=== PATIENT | female | born 1980 | race Caucasian/White ===

== ENCOUNTER 2017-05-06 12:32 | Emergency (ER) | payer MEDICAID ==
[2017-05-06 12:43] VITALS: BP 146/79
[2017-05-06] MEDS ORDERED: CARBAMIDE PEROXIDE 6.5% OTIC DROPS LEFTEAR STA (13:09)
[2017-05-06] MEDS ORDERED: CARBAMIDE PEROXIDE 6.5% OTIC DROPS ONE (13:37)
--- NOTE | 2017-05-06 14:19 | ED Physician Documentation ---
PD HPI HEENT - Stated complaint Stated Complaint: LT EAR PX - Chief complaint Chief Complaint: Heent - History obtained from History obtained from: Patient - History of Present Illness Timing - onset: How many weeks ago (2) Timing - duration: Weeks (2) Timing - details: Still present Location: Left ear Associated symptoms: No: Fever, Headache Similar symptoms before: Has not had sx before - Additional information Additional information: The patient is a 36-year-old female who complains of a left earache that has been increasing in severity over the past 2 weeks. She denies associated headache, fever, or sore throat. She denies history of similar symptoms in the past. Review of Systems Constitutional: denies: Fever Eyes: denies: Irritation Ears: reports: Ear pain. 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 - Present Medications Home Medications: Ambulatory Orders Medication Instructions Recorded Confirmed Sulfamethox/Trimeth 800/160 1 each PO BID #14 tablet 05/06/17 [Bactrim Ds 800/160] - Allergies Allergies/Adverse Reactions: Allergies Allergy/AdvReac Type Severity Reaction Status Date / Time No Known Drug Allergies Allergy Verified 10/02/15 17:56 - Social History Does the pt smoke?: No Smoking Status: Never smoker Does the pt drink ETOH?: No Does the pt have substance abuse?: No - Immunizations Immunizations are current?: Yes PD ED PE NORMAL - Vitals Vital signs reviewed: Yes (Systolic hypertension initially.) - General General: Alert and oriented X 3, Other (Obese.) - HEENT HEENT: Atraumatic, EOMI, Pharynx benign, Other (Left tympanic membrane Was initially obscured by cerumen. After irrigation, reexamination reveals a markedly erythematous tympanic membrane with loss of landmarks. Right tympanic membrane is clear.) - Neck Neck: Supple, no meningeal sign, No adenopathy, No JVD - Cardiac Cardiac: RRR, No murmur - Respiratory Respiratory: No respiratory distress, Clear bilaterally - Derm Derm: No rash - Neuro Neuro: Alert and oriented X 3, Normal speech Results - Vitals Vitals: Oxygen O2 Source Room air PD MEDICAL DECISION MAKING - ED course Complexity details: re-evaluated patient, considered differential, d/w patient ED course: The patient's presentation is most consistent with acute left otitis media. Her presentation does not suggest meningitis, mastoiditis, or peritonsillar abscess. Treatment in the emergency department included irrigation of cerumen from the left ear canal. She is being discharged with a prescription for Bactrim DS. I discussed with her the expected course of illness, antibiotic treatment and outpatient follow-up, as well as potentially worrisome signs or symptoms that should prompt reevaluation in the emergency department. Departure - Departure Disposition: 01 Home, Self Care Clinical Impression: Acute left otitis media Condition: Stable Instructions: ED Otitis Media Acute Adult Follow-Up: [facility] [Provider Group] Prescriptions: Sulfamethox/Trimeth 800/160 [Bactrim Ds 800/160] 1 each PO BID #14 tablet Comments: Take Bactrim twice daily as prescribed. You can use ibuprofen, up to 800 mg 3 times daily if needed for pain or fever. Follow up with your primary physician within 2 weeks. Call to schedule an appointment. Return to the emergency department if you develop increasing headache, increasing pain in your ear, or otherwise worsening symptoms. Discharge Date/Time: 05/06/17 14:27
== END 2017-05-06 14:27 | disposition home or self-care (01) ==
LOC: ED 12:32
DX: H66.92 Otitis media, unspecified, left ear (principal); H61.22 Impacted cerumen, left ear; G47.30 Sleep apnea, unspecified
CPT/HCPCS: 69210; 99283

== ENCOUNTER 2017-08-04 20:16 | Emergency (ER) | payer MEDICAID ==
[2017-08-04] MEDS ORDERED: HYDROcod/ACETAM 5/325 MG TABLET PO STA (20:32)
--- NOTE | 2017-08-04 20:34 | ED Physician Documentation ---
PD HPI URI - Stated complaint Stated Complaint: SORE THROAT - Chief complaint Chief Complaint: Heent - History obtained from History obtained from: Patient - History of Present Illness Timing - onset: Other (37-year-old woman status post remote tonsillectomy presents with 2 days of sore throat, hoarse voice, chills, body aches, fatigue and swollen glands with mild cough. No possibility of .) Review of Systems Constitutional: reports: Fever, Chills, Myalgias, Fatigue Nose: denies: Rhinorrhea / runny nose, Congestion Throat: reports: Sore throat Respiratory: reports: Cough. 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 Home Medications: Ambulatory Orders Medication Instructions Recorded Confirmed HYDROcod/ACETAM 5/325 [[place] 5/325] 1 - 2 ea PO Q6H PRN #10 tablet 08/04/17 - Allergies Allergies/Adverse Reactions: Allergies Allergy/AdvReac Type Severity Reaction Status Date / Time No Known Drug Allergies Allergy Verified 08/04/17 20:44 - Social History Does the pt smoke?: No Smoking Status: Never smoker Does the pt drink ETOH?: No Does the pt have substance abuse?: No - Immunizations Immunizations are current?: Yes PD ED PE NORMAL - Vitals Vital signs reviewed: Yes - General General: Alert and oriented X 3, No acute distress - HEENT HEENT: Other (Status post tonsillectomy, visualized portions of the oropharynx are normal.) - Neck Neck: Supple, no meningeal sign, No bony TTP - Cardiac Cardiac: RRR, No murmur - Respiratory Respiratory: No respiratory distress, Clear bilaterally - Abdomen Abdomen: Non tender - Derm Derm: No rash - Neuro Neuro: Alert and oriented X 3, Normal speech Results - Vitals Vitals: Vital Signs - 24 hr 08/04/17 20:18 Temperature 36 C L Heart Rate 112 H Respiratory 18 Rate Blood Pressure 124/74 O2 Saturation 95 Oxygen O2 Source Room air - Labs Labs: Laboratory Tests 08/04/17 08/04/17 20:25 21:04 Influenza A (Rapid) Negative Influenza B (Rapid) Negative Influenza Types A,B Ag - Group A Strep Rapid Negative Departure - Departure Disposition: 01 Home, Self Care Clinical Impression: Viral syndrome Condition: Good Record reviewed to determine appropriate education?: Yes Instructions: ED Viral Syndrome Prescriptions: HYDROcod/ACETAM 5/325 [[place] 5/325] 1 - 2 ea PO Q6H PRN #10 tablet PRN Reason: Pain Comments: Drink plenty of fluids, ibuprofen as needed in addition to the Vicodin. Do not drink or drive while taking narcotic pain medication. Note that many narcotic pain relievers also contain Tylenol/acetaminophen. Please ensure that your total dose of acetaminophen from all sources does not exceed 3 g (3000 mg) per day. You may get constipated while on this medication. Take a stool softener such as Colace twice a day while you are on it. Also add an [id number] laxative such as senna or MiraLAX on any day that you do not have a bowel movement. If you received a narcotic pain medication or sedative while in the emergency department, do not drive for the next 24 hours. Forms: Activity restrictions
[2017-08-04 20:38] LABS: RAPID STREP SCREEN REAGENT QC YELLOW (YELLOW)
[2017-08-04 23:27] VITALS: BP 130/74
== END 2017-08-04 21:50 | disposition home or self-care (01) ==
LOC: ED 20:16
DX: B34.9 Viral infection, unspecified (principal); G47.30 Sleep apnea, unspecified
CPT/HCPCS: 87070; 87275; 87276; 87430; 99283; A9270

== ENCOUNTER 2017-08-07 18:11 | Emergency (ER) | payer MEDICAID ==
[2017-08-07 18:20] VITALS: BP 154/83
--- NOTE | 2017-08-07 18:22 | ED Physician Documentation ---
PD HPI URI - Stated complaint Stated Complaint: FEVER/EAR PX/SORE NECK - Chief complaint Chief Complaint: General - History obtained from History obtained from: Patient - History of Present Illness Timing - onset: How many days ago (5-6) Timing duration: Days (5-6) Timing details: Gradual onset, Still present Associated symptoms: Fever, Nasal congestion, Sore throat, Swollen nodes Contributing factors: No: Sick contact, Travel Worsened by: No: Activity Similar symptoms before: Diagnosis (strep throat) Recently seen: Emergency Dept (3 days ago for similar and not improved, actually worse. had negative strep test. I looked up her culture result and it is positive for strep group A (but resulted today so had not gone through culture review as yet).) Review of Systems Constitutional: reports: Fever, Chills, Myalgias Nose: reports: Rhinorrhea / runny nose, Congestion Throat: reports: Sore throat Cardiac: denies: Chest pain / pressure Respiratory: denies: Cough GI: denies: Vomiting, Diarrhea Skin: denies: Rash, Lesions Neurologic: denies: Altered mental status, Headache PD PAST MEDICAL HISTORY - Past Medical History Past Medical History: Yes Cardiovascular: None Respiratory: Sleep apnea, CPAP use Neuro: None Endocrine/Autoimmune: None Musculoskeletal: None - Past Surgical History Past Surgical History: Yes 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 - Present Medications Home Medications: Ambulatory Orders Medication Instructions Recorded Confirmed Benzonatate [Tessalon] 100 mg PO TID PRN #15 capsule 08/07/17 Cephalexin [Keflex] 500 mg PO QID #24 capsule 08/07/17 Dexamethasone [Decadron] 4 mg PO DAILY #5 tablet 08/07/17 Ondansetron Odt [Zofran] 4 mg TL Q6H PRN #15 tablet 08/07/17 - Allergies Allergies/Adverse Reactions: Allergies Allergy/AdvReac Type Severity Reaction Status Date / Time No Known Drug Allergies Allergy Verified 08/07/17 18:20 - Social History Does the pt smoke?: No Smoking Status: Never smoker Does the pt drink ETOH?: No Does the pt have substance abuse?: No - Immunizations Immunizations are current?: Yes - POLST Patient has POLST: No PD ED PE NORMAL - Vitals Vital signs reviewed: Yes - General General: Alert and oriented X 3, No acute distress, Well developed/nourished - HEENT HEENT: Moist mucous membranes. No: Pharynx benign (red without focal swelling nor exudate. Anterior nodes tender. No posterior nodes felt. ) - Neck Neck: Supple, no meningeal sign - Cardiac Cardiac: RRR, No murmur - Respiratory Respiratory: Clear bilaterally - Abdomen Abdomen: Soft, Non tender, No organomegaly - Derm Derm: Normal color, Warm and dry, No rash - Neuro Neuro: Alert and oriented X 3, No motor deficit, Normal speech Results - Vitals Vitals: Oxygen O2 Source Room air PD MEDICAL DECISION MAKING - ED course Complexity details: reviewed results, considered differential (not that impressive clinically but culture from recent visit just reports today as positive strep. ), d/w patient Departure - Departure Disposition: 01 Home, Self Care Clinical Impression: Strep pharyngitis Upper respiratory infection Qualifiers: URI type: unspecified URI Qualified Code(s): J06.9 - Acute upper respiratory infection, unspecified Condition: Stable Record reviewed to determine appropriate education?: Yes Instructions: ED Strep Pharyngitis Conf Follow-Up: Ginger Daniels ARNP [Primary Care Provider] - Prescriptions: Benzonatate [Tessalon] 100 mg PO TID PRN #15 capsule PRN Reason: Cough Cephalexin [Keflex] 500 mg PO QID #24 capsule Dexamethasone [Decadron] 4 mg PO DAILY #5 tablet Ondansetron Odt [Zofran] 4 mg TL Q6H PRN #15 tablet PRN Reason: Nausea / Vomiting Comments: Your throat culture did grow Strep Group A, so will treat with antibiotic, as well as medication for inflammation, nausea, cough. Drink lots of fluids and use Tylenol for fevers and pains. Recheck if not improving over the next 2-3 days. Discharge Date/Time: 08/07/17 19:15
[2017-08-07] MEDS ORDERED: ONDANSETRON ODT 4 MG TABLET TL STA (18:54)
[2017-08-07] MEDS ORDERED: BENZONATATE 100 MG CAPSULE PO STA (18:54)
[2017-08-07] MEDS ORDERED: ONDANSETRON ODT 4 MG Prepack 2 TL PRN (18:54)
[2017-08-07] MEDS ORDERED: DEXAMETHASONE 10 MG/ML VIAL PO STA (18:54)
[2017-08-07] MEDS ORDERED: diphenhydrAMINE 25 MG CAPSULE PO STA (18:54)
[2017-08-07] MEDS ORDERED: cephALEXin 250 MG CAPSULE PO STA (18:55)
== END 2017-08-07 19:15 | disposition home or self-care (01) ==
LOC: ED 18:11
DX: J02.0 Streptococcal pharyngitis (principal); J06.9 Acute upper respiratory infection, unspecified; G47.30 Sleep apnea, unspecified
CPT/HCPCS: 99283; A9270; Q0162

== ENCOUNTER 2017-08-12 13:08 | Emergency (ER) | payer MEDICAID ==
[2017-08-12 13:14] VITALS: BP 120/76
--- NOTE | 2017-08-12 13:51 | XRAY Report ---
EXAM: CHEST RADIOGRAPHY EXAM DATE: 08/12/2017 01:42 PM. CLINICAL HISTORY: Cough. COMPARISON: None. TECHNIQUE: 2 views. FINDINGS: Lungs/Pleura: Mild interstitial prominence with peribronchial cuffing. No localized infiltrate, conso lidation, effusion, or pneumothorax. Mediastinum: Heart and mediastinal contours are unremarkable. Other: None. IMPRESSION: Mild interstitial prominence, compatible with bronchitis. [facility] Referring Provider Line: [phone] SITE ID: [id number]
[2017-08-12] MEDS ORDERED: ALBUTEROL NEB 2.5 MG/3 ML INH STA (14:21)
--- NOTE | 2017-08-12 14:44 | ED Physician Documentation ---
PD HPI URI - Stated complaint Stated Complaint: sore throat - Chief complaint Chief Complaint: Resp - History obtained from History obtained from: Patient - History of Present Illness Timing - onset: How many days ago (2-3) Timing duration: Days Timing details: Gradual onset, Still present Associated symptoms: Fever, Chills, Sore throat, Dry cough. No: Nasal congestion, Rhinorrhea, NVD Contributing factors: No: Sick contact, Travel Similar symptoms before: Diagnosis (strep throat) Recently seen: Emergency Dept (8 days ago with sore throat and cough, with URI Dx. Worse sore throat and seen again 08/07, with culture showing Group A Strep, so Rx with Decadron and Keflex. 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 - Present Medications Home Medications: Ambulatory Orders Medication Instructions Recorded Confirmed Benzonatate [Tessalon] 100 mg PO TID PRN #15 capsule 08/07/17 Cephalexin [Keflex] 500 mg PO QID #24 capsule 08/07/17 Dexamethasone [Decadron] 4 mg PO DAILY #5 tablet 08/07/17 Ondansetron Odt [Zofran] 4 mg TL Q6H PRN #15 tablet 08/07/17 Albuterol Sulf [Ventolin Hfa 1 - 2 puffs INH Q4HR PRN #1 inhaler 08/12/17 Inhaler] Azithromycin [Zithromax] 250 mg PO DAILY #6 tablet 08/12/17 Dexamethasone [Decadron] 4 mg PO DAILY #5 tablet 08/12/17 HYDROcod/ACETAM 5/325 [[place] 5/325] 1 tab PO Q6H PRN #15 tablet 08/12/17 - Allergies Allergies/Adverse Reactions: Allergies Allergy/AdvReac Type Severity Reaction Status Date / Time No Known Drug Allergies Allergy Verified 08/07/17 18:20 - Social History Does the pt smoke?: No Smoking Status: Never smoker Does the pt drink ETOH?: No Does the pt have substance abuse?: No - Immunizations Immunizations are current?: Yes - POLST Patient has POLST: No PD ED PE NORMAL - Vitals Vital signs reviewed: Yes - General General: Alert and oriented X 3, No acute distress, Well developed/nourished - HEENT HEENT: Moist mucous membranes. No: Pharynx benign (redness with white exudates. No peritonsillar swelling. ) - Neck Neck: Supple, no meningeal sign, Other (anterior adenopathy) - Cardiac Cardiac: RRR, No murmur - Respiratory Respiratory: Clear bilaterally - Abdomen Abdomen: Soft, Non tender - Derm Derm: Normal color, Warm and dry, No rash Results - Vitals Vitals: Oxygen O2 Source Room air PD MEDICAL DECISION MAKING - ED course Complexity details: reviewed old records (had culture positive strep throat without improvement on meds; will try different abx and recourse steroids. ), considered differential, d/w patient Departure - Departure Disposition: 01 Home, Self Care Clinical Impression: Strep pharyngitis Upper respiratory infection Qualifiers: URI type: unspecified URI Qualified Code(s): J06.9 - Acute upper respiratory infection, unspecified Condition: Stable Record reviewed to determine appropriate education?: Yes Instructions: ED Strep Pharyngitis Conf Follow-Up: Ginger Daniels ARNP [Primary Care Provider] - Prescriptions: Albuterol Sulf [Ventolin Hfa Inhaler] 1 - 2 puffs INH Q4HR PRN #1 inhaler PRN Reason: Shortness Of Air/Wheezing Azithromycin [Zithromax] 250 mg PO DAILY #6 tablet Dexamethasone [Decadron] 4 mg PO DAILY #5 tablet HYDROcod/ACETAM 5/325 [[place] 5/325] 1 tab PO Q6H PRN #15 tablet PRN Reason: Pain Comments: Drink lots of fluids. Tylenol or ibuprofen if needed for fevers and pains. Continue the steroid Decadron for several more days. Change to Zithromax antibiotic since you are not really improving on the current 1. Use albuterol inhaler 2 puffs 4 times a day for wheezing cough. Add hydrocodone if needed for cough or pains. Recheck if still not improving over the next several days. Discharge Date/Time: 08/12/17 14:54
[2017-08-12] MEDS ORDERED: AZITHROMYCIN 250 MG TABLET PO STA (14:46)
== END 2017-08-12 14:54 | disposition home or self-care (01) ==
LOC: ED 13:08
DX: J02.0 Streptococcal pharyngitis (principal); J06.9 Acute upper respiratory infection, unspecified
CPT/HCPCS: 71020; 94640; 99283; A9270; J7613

== ENCOUNTER 2017-08-16 13:54 | Emergency (ER) | payer MEDICAID ==
[2017-08-16 13:59] VITALS: BP 149/90
--- NOTE | 2017-08-16 14:16 | ED Physician Documentation ---
PD HPI URI - Stated complaint Stated Complaint: DIZZY/FEVER/COUGH/SOA - Chief complaint Chief Complaint: Resp - History obtained from History obtained from: Patient - History of Present Illness Timing - onset: Other (She has been sick for about 3 weeks, started with a sore throat, rapid strep was negative but culture positive. She was started on a short course of Keflex, the illness moved into her ears and lungs and now her main symptom is vertigo with ear pain and sinus pressure but no fevers.) Review of Systems Constitutional: reports: Fatigue. denies: Fever, Chills Ears: reports: Ear pain Nose: reports: Rhinorrhea / runny nose, Congestion, Sinus pressure / pain Throat: denies: Sore throat Respiratory: reports: Cough. 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 - Present Medications Home Medications: Ambulatory Orders Medication Instructions Recorded Confirmed Albuterol Sulf [Ventolin Hfa 1 - 2 puffs INH Q4HR PRN #1 inhaler 08/12/17 Inhaler] Amox/Clav 875/125 [Augmentin] 1 each PO Q12H #20 tablet 08/16/17 Guaifenesin/Pseudoephedrne HCl 1 each PO BID PRN #20 tab.er.12h 08/16/17 [Mucinex D ER 600-60 mg Tablet] Meclizine HCl 1 tab PO Q6H PRN #15 tab.chew 08/16/17 - Allergies Allergies/Adverse Reactions: Allergies Allergy/AdvReac Type Severity Reaction Status Date / Time No Known Drug Allergies Allergy Verified 08/16/17 13:58 - Social History Does the pt smoke?: No Smoking Status: Never smoker Does the pt drink ETOH?: No Does the pt have substance abuse?: No - Immunizations Immunizations are current?: Yes - POLST Patient has POLST: No PD ED PE NORMAL - Vitals Vital signs reviewed: Yes - General General: Alert and oriented X 3, No acute distress - HEENT HEENT: PERRL, EOMI, Ears normal, Other (Bilateral maxillary sinus tenderness, left TM is retracted, no otitis media, pharynx normal.) - Neck Neck: Supple, no meningeal sign, No bony TTP - Cardiac Cardiac: RRR, No murmur - Respiratory Respiratory: No respiratory distress, Clear bilaterally - Abdomen Abdomen: Non tender - Neuro Neuro: Alert and oriented X 3 - Psych Psych: Normal mood, Normal affect Results - Vitals Vitals: Vital Signs - 24 hr 08/16/17 13:56 Temperature 36.3 C L Heart Rate 95 Respiratory 21 Rate Blood Pressure 149/90 H O2 Saturation 95 Oxygen O2 Source Room air Departure - Departure Disposition: Home, Self Care Clinical Impression: Sinusitis Condition: Good Record reviewed to determine appropriate education?: Yes Instructions: ED Sinusitis Abx Tx Prescriptions: Amox/Clav 875/125 [Augmentin] 1 each PO Q12H #20 tablet Guaifenesin/Pseudoephedrne HCl [Mucinex D ER 600-60 mg Tablet] 1 each PO BID PRN #20 tab.er.12h PRN Reason: congestion Meclizine HCl 1 tab PO Q6H PRN #15 tab.chew PRN Reason: Vertigo Comments: Call your doctor to arrange a follow-up appointment, make the next available appointment. In the interim, return anytime if worse or if new symptoms develop.
== END 2017-08-16 14:23 | disposition home or self-care (01) ==
LOC: ED 13:54
DX: J32.9 Chronic sinusitis, unspecified (principal); R42 Dizziness and giddiness
CPT/HCPCS: 99283

== ENCOUNTER 2020-07-26 14:13 | Outpatient (CLI) | payer MEDICAID, OTHER ==
--- NOTE | 2020-07-26 14:39 | XRAY Report ---
PROCEDURE: Pelvis 1 View INDICATIONS: IUD CHECK TECHNIQUE: 1 view(s) of the pelvis acquired. COMPARISON: None. FINDINGS: Bones: No fractures or dislocations. Bilateral hip joint osteoarthritic changes are seen. No suspic ious bony lesions. Soft tissues: Intrauterine device is seen in left pelvis just lateral to the midline. Visualized milan l gas pattern is normal. No suspicious soft tissue calcifications. IMPRESSION: 1. Intrauterine device as above. 2. No pelvic fracture or dislocation. Bilateral hip joint osteoarthritis. Reviewed by: Tolu Martinez MD on 07/26/2020 1:38 PM [facility] Approved by: Tolu Martinez MD on 07/26/2020 1:38 PM [facility] Station ID: [id number]
== END 2020-07-26 23:59 | disposition home or self-care (01) ==
LOC: DI.WCP 14:13
PROVIDERS: ATTEND Nurse Practitioner Family
DX: Z30.431 Encounter for routine checking of intrauterine contraceptive device (principal); M16.0 Bilateral primary osteoarthritis of hip

== ENCOUNTER 2020-08-12 20:09 | Outpatient (CLI) | payer OTHER ==
--- NOTE | 2020-08-13 16:15 | Ultrasound Report ---
PROCEDURE: Pelvic w/Transvaginal INDICATIONS: IUD CANTRACEPTION TECHNIQUE: Real-time scanning was performed of the pelvic organs, with image documentation. Additional endovagi nal scanning was necessary due to incomplete visualization of the adnexal and endometrial structures by transabdominal scanning. COMPARISON: None. FINDINGS: Technically difficult exam due to patient's body habitus and the patient's inability to em pty the urinary bladder for transvaginal exam. Transabdominal scanning: Limited scanning through the kidneys shows no hydronephrosis. No pathologi c free abdominal or pelvic fluid. Endovaginal scanning: Uterus: Uterus is mildly enlarged measuring 10.8 x 4.8 x 5.7 cm. Uterus is anteverted. The endometr ium measures 9 mm in combined thickness. There is an IUD which is suboptimally visualized. Ovaries: Right ovary measures 5.8 x 5.4 x 5.5 cm. A 5.0 x 5.2 x 4.4 cm simple cyst seen. Left ovary is not well seen. A 1.7 x 1.5 x 1.9 cm cyst is seen in the left adnexa. IMPRESSION: 1. Uterus is slightly enlarged. There is an IUD in uterus, which is suboptimally visualized but appea rs within the endometrial cavity. 2. A 5.0 x 5.2 x 4.4 cm simple appearing right ovary cyst. A short-term follow-up ultrasound is sugge sted in 6 weeks. 4. The left ovary is not well seen.? A ovarian or paraovarian cyst in left adnexa. Reviewed by: Malick Qiu MD on 08/13/2020 4:14 PM PST Approved by: Malick Qiu MD on 08/13/2020 4:14 PM PST Station ID: [id number]
== END 2020-08-12 20:10 | disposition home or self-care (01) ==
LOC: DI 20:09
PROVIDERS: ATTEND Obstetrics & Gynecology
DX: Z97.5 Presence of (intrauterine) contraceptive device (principal); N83.201 Unspecified ovarian cyst, right side

== ENCOUNTER 2020-11-28 08:00 | Outpatient (CLI) | payer OTHER | END 2020-11-28 23:59 | disposition home or self-care (01) | LOC: LAB.WCP 08:00 | PROVIDERS: ATTEND Family Medicine | DX: Z32.00 Encounter for pregnancy test, result unknown (principal) | CPT/HCPCS: 36415; 84702 ==

== ENCOUNTER 2020-12-04 08:00 | Outpatient (CLI) | payer OTHER, MEDICAID | END 2020-12-04 23:59 | disposition home or self-care (01) | LOC: LAB.WCP 08:00 | PROVIDERS: ATTEND Nurse Practitioner Obstetrics & Gynecology | DX: O03.9 Complete or unspecified spontaneous abortion without complication (principal) | CPT/HCPCS: 36415; 84702 ==

== ENCOUNTER 2020-12-11 08:02 | Outpatient (CLI) | payer OTHER, MEDICAID | END 2020-12-11 08:03 | disposition home or self-care (01) | LOC: LAB 08:02 | PROVIDERS: ATTEND Obstetrics & Gynecology | DX: Z00.00 Encounter for general adult medical examination without abnormal findings (principal); Z13.1 Encounter for screening for diabetes mellitus; O03.9 Complete or unspecified spontaneous abortion without complication; Z13.220 Encounter for screening for lipoid disorders; Z13.21 Encounter for screening for nutritional disorder ==

== ENCOUNTER 2020-12-11 08:06 | Outpatient (CLI) | payer OTHER, MEDICAID ==
[2020-12-11 08:34] LABS: HCT - HEMATOCRIT 43.3 % (37.0-47.0); HGB - HEMOGLOBIN 15.4 g/dL (12.0-16.0); MEAN CORPUSCULAR HEMOGLOBIN 31.6 pg (27.0-31.0); MEAN CORPUSCULAR HGB CONC 35.6 g/dL (32.0-36.0); MEAN CORPUSCULAR VOLUME 88.7 fL (81.0-99.0); RED BLOOD COUNT 4.88 10^6/uL (4.20-5.40); RED CELL DISTRIBUTION WIDTH 12.8 % (12.0-15.0)
[2020-12-11 08:43] LABS: GTT GLUCOSE,FASTING 117 mg/dL (70-100)
[2020-12-11 08:53] LABS: ALBUMIN 4.5 g/dL (3.2-5.5); ALBUMIN/GLOBULIN RATIO 1.3 (1.0-2.2); ALKALINE PHOSPHATASE 50 IU/L (42-121); ALT ALANINE AMINOTRANSFERASE 27 IU/L (10-60); AST ASPARTATE AMINOTRANSFERASE 20 IU/L (10-42); BILIRUBIN,TOTAL 1.1 mg/dL (0.2-1.0); BUN - BLOOD UREA NITROGEN 12 mg/dL (6-20); CALCIUM 9.3 mg/dL (8.5-10.3); CARBON DIOXIDE - CO2 26 mmol/L (21-32); CHLORIDE 103 mmol/L (101-111); CHOL/HDL RATIO 4.5 (<4.4); CHOLESTEROL 170 mg/dL; CREATININE 0.6 mg/dL (0.4-1.0); GFR - MDRD 110 (>89); GLUCOSE 111 mg/dL (70-100); HDL CHOLESTEROL 38 mg/dL; LDL CHOLESTEROL,CALCULATED 106 mg/dL; LDL/HDL RATIO 2.8 (<4.4); POTASSIUM 3.7 mmol/L (3.5-5.0); SODIUM 139 mmol/L (135-145); TOTAL PROTEIN 7.9 g/dL (6.7-8.2); TRIGLYCERIDES 131 mg/dL; VLDL CHOLESTEROL 26 mg/dL
[2020-12-11 09:01] LABS: T4 (THYROXINE) 8.42 ug/dL (6.09-12.23)
[2020-12-11 09:04] LABS: THYROID STIMULATING HORMONE 1.19 uIU/mL (0.34-5.60)
[2020-12-11 09:10] LABS: PROLACTIN 7.14 ng/mL
[2020-12-11 12:55] LABS: ESTIMATED AVERAGE GLUCOSE 91 mg/dL (70-100); HEMOGLOBIN A1c% 4.8 % (4.27-6.07)
== END 2020-12-11 08:07 | disposition home or self-care (01) ==
LOC: LAB 08:06
PROVIDERS: ATTEND Obstetrics & Gynecology
DX: Z00.00 Encounter for general adult medical examination without abnormal findings (principal); Z13.1 Encounter for screening for diabetes mellitus; O03.9 Complete or unspecified spontaneous abortion without complication; Z13.220 Encounter for screening for lipoid disorders; Z13.21 Encounter for screening for nutritional disorder
CPT/HCPCS: 36415; 80053; 80061; 82306; 82951; 83036; 83721; 84146; 84436; 84443; 85027

== ENCOUNTER 2021-01-16 08:00 | Outpatient (CLI) | payer MEDICAID, OTHER | END 2021-01-16 23:59 | disposition home or self-care (01) | LOC: LAB.N 08:00 | PROVIDERS: ATTEND Family Medicine | DX: N39.0 Urinary tract infection, site not specified (principal) | CPT/HCPCS: 87086 ==

== ENCOUNTER 2021-06-17 11:41 | Outpatient (CLI) | payer MEDICAID | END 2021-06-17 11:42 | disposition home or self-care (01) | LOC: LAB.N 11:41 | PROVIDERS: ATTEND Obstetrics & Gynecology | DX: Z32.01 Encounter for pregnancy test, result positive (principal) | CPT/HCPCS: 84144 ==

== ENCOUNTER 2021-07-18 09:58 | Outpatient (CLI) | payer MEDICAID | END 2021-07-18 09:59 | disposition home or self-care (01) | LOC: LAB.N 09:58 | PROVIDERS: ATTEND Obstetrics & Gynecology | DX: O20.9 Hemorrhage in early pregnancy, unspecified (principal) | CPT/HCPCS: 36415; 84702 ==

== ENCOUNTER 2021-08-04 18:44 | Outpatient (CLI) | payer MEDICAID ==
--- NOTE | 2021-08-05 13:31 | Ultrasound Report ---
PROCEDURE: OB First Trimester w/TV INDICATIONS: POSITIVE TEST OUTSIDE/PRIOR DATING DATA: Last menstrual period (LMP): 05/22/2021. LMP-based estimated date of delivery (ALLISON): 02/26/2022. First dating scan (date and location): 08/04/2021. Estimated date of delivery (ALLISON) from first dating scan: 02/21/2022. The below data below was generated using the ultrasound generated ALLISON of 02/21/2022 TECHNIQUE: Real-time scanning was performed of the fetus and maternal pelvic organs, with image documentation. Endovaginal scanning was also performed to better visualize the fetus and maternal ovaries. COMPARISON: None FINDINGS: The gestational sac measures 6.1 cm. [place]-rump length is 4.5 cm. Estimated gestational age 11 weeks 2 days based on crown-rump length. Cervix is closed. heart rate 173 bpm. Measurement variability in dating: +/- 4 weeks by LMP, +/- 7 days by mean sac diameter (use before 6 weeks gestation if crown-rump length not able to be measured), +/- 5 days by crown-rump length (6-12 weeks gestation). Maternal organs: Ovaries not well seen.. IMPRESSION: Single live intrauterine gestation with estimated ultrasound age of 11 weeks 2 days. Reviewed by: Sacha Landa MD on 08/05/2021 1:30 PM PST Approved by: Sacha Landa MD on 08/05/2021 1:30 PM PST Station ID: [id number]
== END 2021-08-04 18:45 | disposition home or self-care (01) ==
LOC: DI 18:44
PROVIDERS: ATTEND Obstetrics & Gynecology
DX: Z32.01 Encounter for pregnancy test, result positive (principal)

== ENCOUNTER 2021-08-07 08:00 | Outpatient (CLI) | payer MEDICAID ==
[2021-08-07 22:56] LABS: CHLAMYDIA TRACHOMATIS DNA NEGATIVE (NEGATIVE); NEISSERIA GONORRHOEAE DNA NEGATIVE (NEGATIVE); TRICHOMONAS VAGINALIS DNA NEGATIVE (NEGATIVE)
== END 2021-08-07 23:59 | disposition home or self-care (01) ==
LOC: LAB 08:00
PROVIDERS: ATTEND Obstetrics & Gynecology
DX: Z11.3 Encounter for screening for infections with a predominantly sexual mode of transmission (principal)
CPT/HCPCS: 87491; 87591; 87661

== ENCOUNTER 2021-08-07 10:54 | Outpatient (CLI) | payer MEDICAID ==
[2021-08-07 17:50] LABS: BASOPHILS % (AUTO) 0.4 %; EOSINOPHILS # (AUTO) 0.1 10^3/uL (0.0-0.7); EOSINOPHILS % (AUTO) 1.3 %; HCT - HEMATOCRIT 41.2 % (37.0-47.0); HGB - HEMOGLOBIN 14.3 g/dL (12.0-16.0); LYMPHOCYTES % (AUTO) 21.7 %; MEAN CORPUSCULAR HEMOGLOBIN 31.2 pg (27.0-31.0); MEAN CORPUSCULAR HGB CONC 34.7 g/dL (32.0-36.0); MEAN PLATELET VOLUME 10.6 fL (7.9-10.8); MONOCYTES # (AUTO) 0.4 10^3/uL (0.0-1.0); MONOCYTES % (AUTO) 4.1 %; NEUTROPHILS # (AUTO) 6.7 10^3/uL (1.5-6.6); NEUTROPHILS % (AUTO) 72.2 %; PLT - PLATELET COUNT 220 10^3/uL (130-450); RED BLOOD COUNT 4.58 10^6/uL (4.20-5.40); RED CELL DISTRIBUTION WIDTH 13.2 % (12.0-15.0); WHITE BLOOD COUNT 9.3 x10^3/uL (4.8-10.8)
[2021-08-07 20:23] LABS: ESTIMATED AVERAGE GLUCOSE 91 mg/dL (70-100); HEMOGLOBIN A1c% 4.8 % (4.27-6.07)
[2021-08-08 11:56] LABS: HIV AG/AB 4TH GEN NON-REACTIVE (NON-REACTIVE)
[2021-08-09 09:31] LABS: HEPATITIS C ANTIBODY NON-REACTIVE (NON-REACTIVE)
[2021-08-09 12:41] LABS: HEPATITIS B SURFACE ANTIGEN NON-REACTIVE (NON-REACTIVE)
== END 2021-08-07 10:55 | disposition home or self-care (01) ==
LOC: LAB.N 10:54
PROVIDERS: ATTEND Obstetrics & Gynecology
DX: Z36.89 Encounter for other specified antenatal screening (principal)
CPT/HCPCS: 36415; 83036; 85025; 86592; 86762; 86787; 86803; 86850; 86900; 86901; 87340; 87389

== ENCOUNTER 2021-10-01 11:48 | Outpatient (CLI) | payer MEDICAID | END 2021-10-01 11:49 | disposition home or self-care (01) | LOC: LAB.N 11:48 | PROVIDERS: ATTEND Obstetrics & Gynecology | DX: O09.90 Supervision of high risk pregnancy, unspecified, unspecified trimester (principal) | CPT/HCPCS: 81599; 82105 ==

== ENCOUNTER 2021-10-14 12:23 | Outpatient (CLI) | payer MEDICAID ==
--- NOTE | 2021-10-14 16:23 | Ultrasound Report ---
PROCEDURE: OB Detailed Eval INDICATIONS: SUPERVISION OF OUTSIDE/PRIOR DATING DATA: Last menstrual period (LMP): 05/22/2021. LMP-based estimated date of delivery (ALLISON): 02/26/2022. First dating scan (date and location): 08/04/2021. Estimated date of delivery (ALLISON) from first dating scan: 02/21/2022. The below data below was generated using the ultrasound ALLISON of 02/21/2022 TECHNIQUE: Real-time scanning was performed of the fetus, with image documentation and biometric measurements. COMPARISON: OB ultrasound 08/04/2021 FINDINGS: General: A single living intrauterine gestation is present. Presentation: Vertex Placenta: Placental position is anterior right, without previa. Amniotic fluid index: 12.1 cm, within normal limits for gestational age. Largest pocket 4.4 cm heart rate: 153 beats per minute. Maternal cervical canal: 4.1 cm long; normal length is 2.5 cm or more. biometrics: Biparietal diameter: 5.1 cm 21 weeks 3 days Head circumference: 18.9 cm 21 weeks 1 day Abdominal circumference: 15.9 cm 20 weeks 6 days Femur length: 3.5 cm 21 weeks 0 days Estimated gestational age from initial scan: 21 weeks 3 days Composite gestational age from present scan: 21 weeks 1 day Estimated weight and percentile: 393 g, 24th percentile Measurement variability in biometric dating: +/- 10 days from 12-20 weeks gestation, +/- 2 weeks from 20-30 weeks gestation, +/- 3 weeks at 30 weeks gestation or later. Anatomic survey: Visualization of multiple structures is limited secondary to patient body habitus. Neuro: Limited with incomplete visualization of the ventricles. Face: Nose and lips, facial profile are not well seen. Spine: Not well seen. Heart: 4-chambered heart and ventricular outflow tracts are not well seen. Diaphragm: Diaphragm is intact. Stomach: Left-sided stomach is present. Kidneys: No hydronephrosis. Normal is less than 5 mm in 2nd trimester, less than 7 mm in 3rd trimester. Cord: 3 vessel cord has orthotopic insertion. Bladder: Normal in size. Extremities: Right and left lower limbs are not visualized. IMPRESSION: Single live intrauterine with ultrasound gestational age of 21 weeks 1 day. Growth is at the 24th percentile. Multiple anatomic structures are not well visualized and repeat ultrasound is recommended. Reviewed by: Violeta Myers MD on 10/14/2021 4:22 PM PST Approved by: Violeta Myers MD on 10/14/2021 4:22 PM PST Station ID: [id number]
== END 2021-10-14 12:24 | disposition home or self-care (01) ==
LOC: DI 12:23
PROVIDERS: ATTEND Obstetrics & Gynecology
DX: O09.92 Supervision of high risk pregnancy, unspecified, second trimester (principal); Z36.89 Encounter for other specified antenatal screening; Z3A.21 21 weeks gestation of pregnancy

== ENCOUNTER 2021-11-12 09:19 | Outpatient (CLI) | payer MEDICAID ==
[2021-11-12 12:11] LABS: HCT - HEMATOCRIT 36.2 % (37.0-47.0); HGB - HEMOGLOBIN 12.8 g/dL (12.0-16.0); MEAN CORPUSCULAR HEMOGLOBIN 31.4 pg (27.0-31.0); MEAN CORPUSCULAR HGB CONC 35.4 g/dL (32.0-36.0); MEAN CORPUSCULAR VOLUME 88.9 fL (81.0-99.0); MEAN PLATELET VOLUME 10.7 fL (7.9-10.8); RED BLOOD COUNT 4.07 10^6/uL (4.20-5.40); RED CELL DISTRIBUTION WIDTH 14.4 % (12.0-15.0); WHITE BLOOD COUNT 10.1 x10^3/uL (4.8-10.8)
== END 2021-11-12 09:20 | disposition home or self-care (01) ==
LOC: LAB.N 09:19
PROVIDERS: ATTEND Obstetrics & Gynecology
DX: O09.90 Supervision of high risk pregnancy, unspecified, unspecified trimester (principal)
CPT/HCPCS: 36415; 82950; 85027

== ENCOUNTER 2021-11-26 07:55 | Outpatient (CLI) | payer MEDICAID ==
[2021-11-26 08:20] LABS: GTT GLUCOSE,FASTING 100 mg/dL (70-100)
== END 2021-11-26 07:56 | disposition home or self-care (01) ==
LOC: LAB 07:55
PROVIDERS: ATTEND Obstetrics & Gynecology
DX: O99.810 Abnormal glucose complicating pregnancy (principal)
CPT/HCPCS: 36415; 82951; 82952

== ENCOUNTER 2021-12-08 11:39 | Outpatient (CLI) | payer MEDICAID | END 2021-12-08 11:40 | disposition home or self-care (01) | LOC: MAC.DIA 11:39 | PROVIDERS: ATTEND Obstetrics & Gynecology | DX: O24.419 Gestational diabetes mellitus in pregnancy, unspecified control (principal); Z71.3 Dietary counseling and surveillance; E66.01 Morbid (severe) obesity due to excess calories | CPT/HCPCS: 97802 ==

== ENCOUNTER 2022-07-23 08:23 | Outpatient (CLI) | payer MEDICAID ==
[2022-07-23 12:24] LABS: BASOPHILS # (AUTO) 0.1 10^3/uL (0.0-0.1); BASOPHILS % (AUTO) 0.6 %; EOSINOPHILS # (AUTO) 0.3 10^3/uL (0.0-0.7); EOSINOPHILS % (AUTO) 2.3 %; LYMPHOCYTES # (AUTO) 3.5 10^3/uL (1.5-3.5); LYMPHOCYTES % (AUTO) 29.2 %; MEAN CORPUSCULAR HEMOGLOBIN 30.9 pg (27.0-31.0); MEAN CORPUSCULAR HGB CONC 34.1 g/dL (32.0-36.0); MEAN CORPUSCULAR VOLUME 90.5 fL (81.0-99.0); MEAN PLATELET VOLUME 10.2 fL (7.9-10.8); MONOCYTES # (AUTO) 0.6 10^3/uL (0.0-1.0); MONOCYTES % (AUTO) 5.1 %; NEUTROPHILS # (AUTO) 7.5 10^3/uL (1.5-6.6); NEUTROPHILS % (AUTO) 62.5 %; PLT - PLATELET COUNT 331 10^3/uL (130-450); RED BLOOD COUNT 4.86 10^6/uL (4.20-5.40); RED CELL DISTRIBUTION WIDTH 13.4 % (12.0-15.0); WHITE BLOOD COUNT 12.1 x10^3/uL (4.8-10.8)
[2022-07-23 12:38] LABS: ALBUMIN 4.1 g/dL (3.2-5.5); ALBUMIN/GLOBULIN RATIO 1.1 (1.0-2.2); BILIRUBIN,TOTAL 0.7 mg/dL (0.2-1.0); CALCIUM 9.1 mg/dL (8.5-10.3); CREATININE 0.7 mg/dL (0.4-1.0); POTASSIUM 3.9 mmol/L (3.5-5.0); TOTAL PROTEIN 7.8 g/dL (6.7-8.2)
[2022-07-23 12:49] LABS: THYROID STIMULATING HORMONE 2.76 uIU/mL (0.34-5.60)
[2022-07-23 13:05] LABS: CREATININE,URINE 122.8 mg/dL; MICROALBUM/CREATININE RATIO,UR 6.5 ug/mg (<30.0); MICROALBUMIN,URINE 0.8 mg/dL (0-300.0)
[2022-07-23 13:08] LABS: ESTIMATED AVERAGE GLUCOSE 103 mg/dL (70-100); HEMOGLOBIN A1c% 5.2 % (4.27-6.07)
== END 2022-07-23 08:24 | disposition home or self-care (01) ==
LOC: LAB.N 08:23
PROVIDERS: ATTEND Nurse Practitioner
DX: F53.0 Postpartum depression (principal); R53.83 Other fatigue; Z86.32 Personal history of gestational diabetes
CPT/HCPCS: 36415; 80053; 82043; 82570; 83036; 84443; 85025

== ENCOUNTER 2022-12-25 11:53 | Outpatient (CLI) | payer MEDICAID ==
--- NOTE | 2022-12-25 15:56 | XRAY Report ---
PROCEDURE: Chest 2 View X-Ray INDICATIONS: BRONCHITIS TECHNIQUE: 2 views of the chest were acquired. COMPARISON: None. FINDINGS: Surgical changes and devices: None. Lungs and pleura: No pleural effusions or pneumothorax. Lungs are clear. Mediastinum: Mediastinal contours appear normal. Heart size is normal. Bones and chest wall: No suspicious bony lesions. Overlying soft tissues appear unremarkable. IMPRESSION: No acute cardiopulmonary process. Reviewed by: Violeta Myers MD on 12/25/2022 3:55 PM PDT Approved by: Violeta Myers MD on 12/25/2022 3:55 PM PDT Station ID: [id number]
== END 2022-12-25 23:59 | disposition home or self-care (01) ==
LOC: DI.N 11:53
PROVIDERS: ATTEND Family Medicine
DX: J20.9 Acute bronchitis, unspecified (principal)

== ENCOUNTER 2023-01-14 13:04 | Outpatient (CLI) | payer MEDICAID ==
--- NOTE | 2023-01-14 13:50 | Sleep Patient Instructions ---
Sleep Center Visit Summary - Patient Visit Information Reason for Visit: Initial consult to re-establish care for PAP therapy - Patient Instructions Additional Instructions: You were here for follow up of CPAP therapy. You will be continued on CPAP therapy with pressure at 10 cmH2O. An order to set you up with a new CPAP supplier and new CPAP will be sent to the DME supplier you choose today. Pleas call us when you get your new device to schedule your followup. You should follow up with sleep care one month after you obtain your new device. You may contact us sooner for any questions or concerns. - Clinic Information Contact: [facility] [address] [place] [address] [email or web address] T: [phone]
--- NOTE | 2023-01-14 14:01 | SLEEP CARE CONSULTATION ---
Information from patient questionnaire entered by Georgia Hamilton. I have reviewed and concur with the information entered by Georgia Hamilton. This document represents the service I personally performed and the decisions made by me, Sherita Yen ARNP. History of Present Illness Service Date and Time: 01/14/2023 1304 Reason for Visit: New patient, Previously diagnosed sleep apnea, sleep apnea on CPAP therapy Chief Complaint: reports: Other (UPDATE SUPPLIES) Date of Onset: 11YRS Usual bedtime: 9-10PM Time it takes to fall asleep: 30-60MINS Snores at night: Yes Observed to quit breathing while asleep: Yes Sleeps alone due to snoring: No Number of times waking at night: 3 Reasons for waking at night: reports: Gasping for air, Bathroom, Other (BABY) Toss, Turn, or Twitch while sleeping: No Recalls having dreams: Yes Usually gets out of bed at: 7AM Feels refreshed in the morning: No Morning headache: No Sleepy or fatigued during the day: Yes Ever fallen asleep while driving: Yes Takes day naps: Yes Dreams during day naps: Yes Prior sleep studies: Yes Year and Where: 2011 [facility] Additional HPI information: TAMI HERNANDEZ was previously diagnosed to have very severe, AHI 61, obstructive sleep apnea-hypopnea syndrome as seen in PSG dated 01/30/2012 here at [facility] and comes in today to re-establish care for CPAP therapy. She was last seen here in 2011 and set up with a CPAP machine. - Parasomnia Symptoms Ever been unable to move upon waking from sleep: No Walks in sleep: No Talks in sleep: No Ever acted out dreams in sleep: No Ever felt weak in the knees when startled or emotional: No Bothered by creepy, crawly, restless sensations in legs: No Problems with memory or concentration: Yes CPAP Compliance Data - Data Reviewed with Patient Average duration of nightly device use: 5 hours Compliance rate %: 76 (/30 days with 4 hours or more in last 30 days) Current pressure setting (cmH2O): 10 Average residual AHI: 5.6 Compliance data discussion: She has a older ResMed CPAP. She does not have a regular DME supplier. She has not purchased any supplies in last year or more. She is using a full face mask. Patient states she tries to use at least 4 hours nightly Subjective Patient concerns: reports: mask discomfort (mask broken), air blowing in eyes, mask leak noise. denies: aerophagia, condensation in mask/hose, nasal congestion, dry mouth, nose, throat, epistaxis Observed to snore while using device: Yes Current pressure setting perceived as: comfortable On therapy, patient: reports: sleeping better, awakening more refreshed, being more awake and alert during the day, more rested overall. 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 Patient is and lives in . Have you smoked in the past 12 months: No Alcohol use: Yes Alcohol amount and frequency: 1 DRINK ONCE A MONTH Caffeine use: Yes Caffeine amount and frequency: 1 DRINK DAILY Family History Family history of sleep disordered breathing: No Allergies and Home Medications Known drug allergies: No Drug allergies reviewed: Yes Home medication list reviewed: Yes (no daily medications) Allergy and home medication list: Allergies No Known Drug Allergies Allergy (Verified 01/13/23 10:48) Review of Systems Weight gain over past 5 years: 20 Cardiovascular: denies: high blood pressure Respiratory: reports: wheeze Gastrointestinal: denies: heartburn Urinary: reports: urgency Neurological: denies: headaches Psychiatric: denies: anxiety, depression Ear/Nose/Throat: reports: tonsillectomy, wisdom teeth removed Endocrine: reports: sluggishness. denies: thyroid disease Immunologic: reports: allergies to food or environment Physical Exam Vital signs obtained and entered by: GEORGIA Allison MA Blood Pressure: 156/102 (LEFT ARM) Cuff size: long Heart Rate: 106 O2 Saturation: 94 Height: 5 ft 7 in Weight: 316 lb 12.8 oz Body Mass Index: 49.6 BMI Classification: Morbidly Obese Neck circumference: 20.25 Heart: regular rate and rhythm Lungs: clear bilaterally Impression and Plan 1. Obstructive Sleep Apnea-Hypopnea Syndrome, very severe, with good treatment compliance and fair apnea control. On CPAP therapy, the patient has better sleep quality and is more rested overall. Patient has an old Resmed that she received in 2011. She also has not been able to get supplies for a long time. I will have my clinical administrative coordinator inform of DME options. A DWO prescription will then be made. Patient advised to contact this office if further supply problems. The patients CPAP is over 5 years old and of reasonable use. Thus, the CPAP will be updated. A DWO prescription will be made. Compliance guidelines for new device and follow up discussed. Patient's apnea severity and rationale for treatment to reduce apnea, improve sleep quality and reduce cardiovascular and cerebrovascular events was reviewed. 2. Obesity, unspecified. Currently patients BMI is 49.6. Obesity increases the risk of apnea, CPAP pressure requirements and overall health risks especially cardiovascular and diabetes. Thus patient is advised to lose weight. * Continue CPAP pressure at 10 cmH2O * Transfer DME * Update machine * Update supplies * Notify me if snoring with mask or feeling that the pressure is too much or too little * Attempt to lose weight * Call this office if any problems using CPAP * Return for follow up one month after obtaining new device, or sooner if concerns arise Counseling Topics: Spare mask, Weight loss health impact Visit Type: In Office Time Spent with Patient (minutes): 32 Provider Statement: I spent 100% of the Face to Face Visit with the patient with greater than 50% spent counseling the patient and coordination of care.
[2023-01-14 14:04] VITALS: BP 156/102
== END 2023-01-14 13:05 | disposition home or self-care (01) ==
LOC: SC 13:04
PROVIDERS: ATTEND Nurse Practitioner Family
DX: G47.33 Obstructive sleep apnea (adult) (pediatric) (principal); E66.01 Morbid (severe) obesity due to excess calories; Z68.42 Body mass index [BMI] 45.0-49.9, adult
CPT/HCPCS: 99203; 99212

== ENCOUNTER 2023-07-13 10:16 | Outpatient (CLI) | payer MEDICAID ==
--- NOTE | 2023-07-13 10:01 | SLEEP CARE CONSULTATION ---
Information from patient questionnaire entered by Tabitha Hamilton. I have reviewed and concur with the information entered by Tabitha Hamilton. This document represents the service I personally performed and the decisions made by me, Sherita Yen ARNP. History of Present Illness Service Date and Time: 07/13/2023 1000 Previous diagnosis: Very Severe, Obstructive Sleep Apnea-Hypopnea Syndrome AHI: 61 (in 2011) Reason for follow up: first compliance after device update Equipment type: CPAP (RESMED Airsense 11, s/u 02/2023) Equipment obtained from: Other ([facility]) Mask style: Nasal (over the nose) Backup mask available: No (will keep old mask when replaced) Last cushion change: over a month Prior sleep studies: Yes Year and Where: 2011 [facility] HPI additional information: TAMI HERNANDEZ was diagnosed to have very severe, AHI 61, obstructive sleep apnea-hypopnea syndrome and returns via video appointment today for CPAP therapy first compliance after updating device follow-up. Sleep Study - Results Prior sleep studies: Yes Year and Where: 2011 [facility] CPAP Compliance Data - Data Reviewed with Patient Average duration of nightly device use: 5 HRS 59 MIN Compliance rate %: 90 (02/18/23-03/19/23; 29/30 days used) Current pressure setting (cmH2O): 10 Average residual AHI: 3.4 Central apnea: 0 Obstructive apnea: 0.1 Hypopnea: 3.2 Average large leak: 2.2 L/min Subjective Patient concerns: reports: dry mouth, nose, throat (sometimes). denies: aeroph agia, mask discomfort, air blowing in eyes, mask leak noise, condensation in mask/hose, nasal congestion, epistaxis Observed to snore while using device: No Current pressure setting perceived as: comfortable On therapy, patient: reports: sleeping better, awakening more refreshed, being more awake and alert during the day, more rested overall. denies: drowsiness while driving Initial [place] Sleepiness Scale score: 13 Current [place] Sleepiness Scale score: 5 (07/13/2023) Allergies and Home Medications Known drug allergies: No Drug allergies reviewed: Yes Home medication list reviewed: Yes (no changes) Allergy and home medication list: Allergies No Known Drug Allergies Allergy (Verified 07/12/23 08:48) Review of Systems Review of systems same as previous: Yes (no changes) Physical Exam Vital signs obtained and entered by: SHERITA TOLEDO Height: 5 ft 7 in Weight: 300 lb (per pt) Body Mass Index: 47.0 BMI Classification: Morbidly Obese Impression and Plan 1. Obstructive Sleep Apnea-Hypopnea Syndrome, very severe, with good treatment compliance and good apnea control. On CPAP therapy, the patient has better sleep quality and is more rested overall. Patient is doing well with new machine with no complaints. Patient has significant improvement of their sleep apnea and is satisfied with current CPAP therapy. She gets occasional dry mouth but states this is not a problem. Patient's apnea severity and rationale for treatment to reduce apnea, improve sleep quality and reduce cardiovascular and cerebrovascular events was reviewed. 2. Obesity, unspecified. Currently patients BMI is 47. Obesity increases the risk of apnea, CPAP pressure requirements and overall health risks especially cardiovascular and diabetes. Thus patient is advised to lose weight. * Continue CPAP pressure at 10 cmH2O * Notify me if snoring with mask or feeling that the pressure is too much or too little * Attempt to lose weight * Call this office if any problems using CPAP * Return for follow up in 1 year, or sooner if concerns arise Counseling Topics: Spare mask, Weight loss health impact Follow up with Sleep Care in: 1 year Visit Type: Telehealth Video Video Type: Doximity Patient Location: in Car Location of Provider: Office Patient agrees and consents to this telehealth visit type: Yes Patient agrees to have their insurance billed: Yes Time Spent with Patient (minutes): 10 Provider Statement: I spent 100% of the Telehealth Video Call with the patient with greater than 50% spent counseling the patient and coordination of care.
== END 2023-07-13 10:17 | disposition home or self-care (01) ==
LOC: SC 10:16
PROVIDERS: ATTEND Nurse Practitioner Family
DX: G47.33 Obstructive sleep apnea (adult) (pediatric) (principal); E66.01 Morbid (severe) obesity due to excess calories; Z68.42 Body mass index [BMI] 45.0-49.9, adult